=== PATIENT | female | born 1940 | race Caucasian/White ===

== ENCOUNTER → 2017-02-09 | Outpatient (CLI) | payer MEDICARE, BC | END | disposition disaster alternative care site (69) | LOC: GRAD 08:58 | DX: R13.10 Dysphagia, unspecified (principal); K22.4 Dyskinesia of esophagus; K44.9 Diaphragmatic hernia without obstruction or gangrene; R09.89 Other specified symptoms and signs involving the circulatory and respiratory systems ==